=== PATIENT | male | born 1990 | race African-American/Black ===

== ENCOUNTER 2024-07-14 22:57 | Emergency (ER) | payer OTHER ==
[2024-07-14 23:07] VITALS: BP 127/82; PULSE 100; RESP 18; TEMP 98; O2SAT 100
[2024-07-14] MEDS: VISCOUS LIDOCAINE 2% 15 ML UDC PO NR (23:15)
[2024-07-15] MEDS: MAGNESIUM/ALUMINUM HYDROXIDE/SIMETHICONE 30ML UDC PO ONE (00:17)
[2024-07-15] MEDS: ONDANSETRON 4MG ODT PO ONE (00:17)
[2024-07-15] MEDS ORDERED: ONDA4TAB50 MT (00:35)
== END 2024-07-15 01:17 | disposition home or self-care (01) ==
LOC: ER 23:13
DX: R09.A2 Foreign body sensation, throat (principal)
CPT/HCPCS: 99284; 70360; Q0162